=== PATIENT | male | born 1935 | race Caucasian/White ===

== ENCOUNTER 2017-12-25 10:41 | Outpatient (CLI) | payer MEDICARE ==
--- NOTE | 2017-12-25 12:09 | RAD ---
FRONTAL AND LATERAL IMAGING OF CHEST: Date: 12/25/17 COMPARISON: 12/26/16. HISTORY: Dyspnea. FINDINGS: Stable blunting of right costophrenic angle, elevation of right hemidiaphragm, and right hilar clips noted. No pneumothorax, lobar consolidation, or alveolar edema. IMPRESSION: Stable appearance of the chest. No acute findings. POS: MELODIE
== END 2017-12-25 10:42 | disposition home or self-care (01) ==
LOC: RAD 10:41
PROVIDERS: ATTEND Internal Medicine Pulmonary Disease
DX: R06.00 Dyspnea, unspecified (principal)
CPT/HCPCS: 71046

== ENCOUNTER 2019-06-11 15:43 | Inpatient (IN) | payer MEDICARE ==
[2019-06-11] MEDS ORDERED: Senokot S 8.6-50 MG TAB PO PRN (18:34)
[2019-06-11] MEDS ORDERED: Ondansetron PF 4 MG/2 ML Vial IVP PRN (18:34)
[2019-06-11] MEDS ORDERED: Ondansetron ODT 4 MG TAB PO PRN (18:34)
[2019-06-11] MEDS ORDERED: Acetaminophen 325 MG TAB PO PRN (18:34)
--- NOTE | 2019-06-11 19:49 | HP ---
PRIMARY CARE PROVIDER: The patient currently does not have a primary care provider. CHIEF COMPLAINT: Confusion, altered mental status, nausea and vomiting. HISTORY OF PRESENT ILLNESS: In interview of the patient at bedside, the patient did not recall the events that happened this morning that led him to the hospital today, so the information was gathered from the patient's spouse Brooke at bedside. The patient's spouse reports approximately 4 days before Argelia on June 01 , the family was having their annual [place] constitution party and she noticed that the patient was weak and had some nausea and vomiting. Over the next several days, the patient' s symptoms became worse, nausea, and vomiting, decreased oral intake and weakness. Then she reports this morning at approximately 0400 she went into the bedroom and the patient was curled up in the bed," like a little baby," so the patient called EMS. Upon EMS arrival, decision was made to take the patient into the ER in [place] at the [place]. CT of the brain was negative. It showed no acute intracranial process. Chest x-ray showed new left lung mass different from the previous chest x-ray on 12/25/17 in the left mid lung. EKG was normal sinus rhythm. The patient had a UA that showed moderate leukocytes, white blood cells , positive nitrites with bacteria +3. The patient was given Rocephin 1 g, 1 L of normal saline. The patient also had an elevated troponin of 0.071. The patient was also given aspirin 324 mg and a decision was made to transfer him to the [facility] for further care. PAST MEDICAL HISTORY: 1. Pertinent for bladder cancer with bladder reconstruction from small bowel in 2006. 2. Prostatectomy. 3. Lung cancer and the right upper lobe lobectomy by Dr. Mendieta back in 2006. The patient is followed by Dr. Brown. 4. Hypertension. 5. Bladder reconstruction with small bowel. The patient self cathes 4 times a day. 6. Hypertension. SOCIAL HISTORY: 1. The patient is retired and lives with his spouse at home. 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 He denies any alcohol intake. He is a former smoker quitting over 20 to 30 years ago. He denies any ETOH intake and denies any illicit drug use. ALLERGIES: THE PATIENT'S SPOUSE REPORTS ALLERGY TO LYRICA. MEDICATIONS: Unable to confirm dose at this time. We will reconcile medications on the floor. FAMILY HISTORY: The patient is a poor historian. Unable to obtain at this time due to altered mental status. REVIEW OF SYSTEMS: CONSTITUTIONAL: The patient reports weakness. Denies fever and chills. EYES: Denies any vision changes or eye redness or eye discharge or eye pain. ENT: The patient denies any epistaxis, otalgia, rhinorrhea or sore throat. CARDIOVASCULAR: The patient denies chest pain, heart palpitations. RESPIRATORY: The patient denies cough and shortness of breath. GI. The patient reports some nausea and vomiting. Denies any diarrhea or blood in the stools. GENITOURINARY: The patient reports self cathing 4 times a day secondary to bladder reconstruction. SKIN: Denies any rashes or pruritus. NEUROLOGICAL: The patient reports headaches. Denies any dizziness and confusion. PHYSICAL EXAMINATION: VITAL SIGNS: Temperature 98.7, blood pressure 134/63, pulse 84, respirations 18 , SpO2 96% on room air. CONSTITUTIONAL: The patient is alert and oriented to person, place, and time. HEAD: Atraumatic, normocephalic. EYES: Pupils are equal, round, and reactive to light. Extraocular muscles are intact conjunctiva nonicteric. ENT: EAC is clear. Nares are patent. Oropharynx is clear. No oral lesions. Uvula midline. NECK: Supple. Trachea is midline. No JVD. Normal range of motion. RESPIRATORY: Breath sounds are even, nonlabored. No wheezing, rhonchi, or rales. CARDIOVASCULAR: The patient has regular rate and rhythm. Heart sounds are normal. S1 and S2 auscultated. No murmurs, rubs, or gallops. ABDOMEN: Soft and nontender. Active bowel sounds. No hepatosplenomegaly. No distention. No pulsatile mass. No guarding or rebound tenderness. BACK: Exam is normal. EXTREMITIES: Upper extremities: Strength 5/5. Sensation intact. Palpable radial pulses. No clubbing. No cyanosis. Lower extremities: Muscle strength is 5/5. Palpable pedal pulses. No clubbing or cyanosis. Sensation intact. NEUROLOGICAL: GCS is 15. The patient is alert and oriented to person, place, and time. Speech is normal. No focal neuro deficits. SKIN: Warm, dry, and intact. LABORATORY DATA: EKG with normal sinus rhythm. Chest pressure was positive for a new left mid lung mass measuring 3.7 cm compared to previous chest x-ray on 12/25/2017. Recommendation for CT with contrast for further evaluation. CT brain was negative. No acute intracranial processes. Sodium was 133, potassium was 4.6, chloride was 100, bicarb was 17, BUN was 35, creatinine was 1.7, anion gap was 21, glucose was 109, GFR was 39, AST 18, ALT 15, alkaline phosphatase 72. Troponin 1 was 0.071, troponin 2 were negative. CK-MB was 2.4. BNP was 15.3. UA showed moderate leukocytes, WBCs greater than 50, nitrite positive, bacteria 3+. UDS was positive for opioids. ETOH was less than 10. Lactic acid was 1.2. WBCs were 12.5, hemoglobin 14.1, hematocrit 45.5, platelets 424. IMPRESSION: 1. Urinary tract infection. The patient was treated with 1 g of Rocephin. We will continue antibiotic therapy. We will send urine for culture. We will continue to IV hydrate. The patient's spouse reports that he self catheterize 4 four times a day. Therefore, we will start a Arevalo catheter and continue to monitor. 2. Altered mental status, likely secondary to #1. 3. Acute kidney injury, chronic kidney disease stage 3. Continue intravenous hydration. Repeat labs in the a.m. Avoid nephrotoxic medications. 4. Elevated troponin. Original troponin was elevated and the last 2 were negative. The patient was given aspirin. Denies chest pain. 5. Hyponatremia, mild, appears at baseline. Will continue to monitor. 6. Hypertension. Blood pressure stable. We will restart amlodipine home medication. 7. Lung mass. Finding on chest x-ray showed new left mid lung mass compared to 12/25/2017. We will consider CT of chest with contrast when the patient's kidney function improves. 8. Deep venous thrombosis and gastrointestinal prophylaxis. Job ID: [id number] [facility]
[2019-06-11] MEDS: Sodium Chloride 0.9% 1,000 ML IV SCH (20:22)
[2019-06-11 20:49] LABS: Troponin I 0.032 ng/mL (< 0.028)
[2019-06-11 23:33] LABS: Troponin I 0.024 ng/mL (< 0.028)
[2019-06-12 05:09] LABS: #Eosinphils 0.1 thou/uL (0.0-0.7); #Lymphocytes 1.8 thou/uL (1.20-3.40); #Neutrophils 5.6 thou/uL (1.40-6.50); %Basophils 0.3 % (0.0-1.0); %Eosinophils 1.7 % (0.0-10.0); %Lymphocytes 20.8 % (21.0-51.0); %Monocytes 11.8 % (0.0-10.0); %Neutrophils 65.5 % (42.0-75.0); Hemoglobin 12.7 g/dL (14.0-18.0); Mean Corpuscular HGB CONC 32.1 g/dL (32.0-36.0); Mean Corpuscular Hemoglobin 29.6 pg (27.0-31.0); Mean Corpuscular Volume 92.3 fL (78.0-98.0); Mean Platelet Volume 6.7 fL (7.4-10.4); Platelet Count 336 thou/uL (130-400); RBC Distribution Width 12.7 % (11.5-14.5); White Blood Cell (WBC) Count 8.6 thou/uL (4.8-10.8)
[2019-06-12 05:34] LABS: Anion Gap 15 mmol/L (10-20); BUN (Urea Nitrogen) 31 mg/dL (8.4-25.7); Calc. Creatinine Clearance 39 mL/min (70-130); Calcium 9.3 mg/dL (7.8-10.44); Carbon Dioxide 21 mmol/L (23-31); Chloride 104 mmol/L (98-107); Estimated GFR-MDRD 48; Glucose 72 mg/dL (83-110); Potassium 4.3 mmol/L (3.5-5.1); Sodium 136 mmol/L (136-145)
[2019-06-12] MEDS: Famotidine 20 MG TAB PO SCH (08:02)
[2019-06-12] MEDS: Sodium Chloride 0.9% 1,000 ML IV SCH ×2 (08:02→21:11)
--- NOTE | 2019-06-12 10:09 | PDOC.HOSPP ---
- Subjective Subjective: Doing ok this morning. No complaints. feels he is at his baseline. - Objective Vital Signs & Weight: Vital Signs (12 hours) Temp Pulse Resp BP BP Pulse Ox 06/12/19 07:23 97.9 F 74 18 137/76 96 06/12/19 04:20 98.4 F 75 16 139/65 96 06/11/19 23:13 98.5 F 84 16 147/69 H 96 Weight Weight 153 lb 6 oz I&O: 06/11/19 06/12/19 06/13/19 06:59 06:59 06:59 Intake Total 1065 Output Total 2200 Balance -1135 Result Diagrams: 06/12/19 04:51 06/12/19 04:51 Hospitalist ROS - Medication Medications: Active Medications Generic Name Dose Route Start Last Admin Trade Name Freq PRN Reason Stop Dose Admin Famotidine 20 mg 06/12/19 09:00 06/12/19 08:02 Pepcid PO 20 mg DAILY SAMARA Administration Sodium Chloride 1,000 mls @ 75 mls/hr 06/11/19 18:45 06/12/19 08:02 Normal Saline 0.9% IV 1,000 mls .[id number] SAMARA Administration - Exam General Appearance: NAD, awake alert Heart: RRR, no murmur, no gallops, no rubs, normal peripheral pulses Respiratory: CTAB, no wheezes, no rales, no ronchi, normal chest expansion, no tachypnea, normal percussion Gastrointestinal: soft, non-tender, non-distended, normal bowel sounds, no palpable masses, no hepatomegaly, no splenomegaly, no bruit Extremities: no cyanosis, no clubbing, no edema Musculoskeletal: normal tone, normal strength, no muscle wasting Psychiatric: normal affect, normal behavior Hosp A/P (1) Acute metabolic encephalopathy Code(s): G93.41 - METABOLIC ENCEPHALOPATHY Status: Acute (2) UTI (urinary tract infection) Status: Acute (3) Urinary retention Code(s): R33.9 - RETENTION OF URINE, UNSPECIFIED Status: Acute (4) Lung mass Code(s): R91.8 - OTHER NONSPECIFIC ABNORMAL FINDING OF LUNG FIELD Status: Acute (5) Hx of cancer of lung Code(s): Z85.118 - PERSONAL HISTORY OF MALIGNANT NEOPLASM OF BRONCHUS AND LUNG Status: Acute (6) Hyponatremia Code(s): E87.1 - HYPO-OSMOLALITY AND HYPONATREMIA Status: Acute (7) Hx of bladder cancer Code(s): Z85.51 - PERSONAL HISTORY OF MALIGNANT NEOPLASM OF BLADDER Status: Acute - Plan Had large volume of retained urine yesterday when the Arevalo was placed. Apparently, has reconstructed bladder with bowel. Typically self-caths, but had not all day because he was in the ED. Will leave the Arevalo in place for now. Continue Rocephin and await blood cultures. Renal function appears to be close to his baseline. Does not look like acute injury. Will continue to hydrate and recheck levels. Avoiding CT contrast for now. Has a 3.7 cm lung mass. Hx of lung cancer in 2006. Surgically treated. Follows with Dr. Brown. Will consult him. Plan for CT, but no tucker. Will continue to hydrate and see how well we can get the kidney's functioning so that we can consider the use of contrast.
[2019-06-12] MEDS: cefTRIAXone\\ROCEPHIN 1 GM in Sodium Chloride 0.9% 100 ML IVPB SCH (12:48)
[2019-06-13 05:39] LABS: #Eosinphils 0.1 thou/uL (0.0-0.7); #Neutrophils 5.1 thou/uL (1.40-6.50); %Basophils 0.1 % (0.0-1.0); %Eosinophils 1.4 % (0.0-10.0); %Lymphocytes 24.1 % (21.0-51.0); %Neutrophils 62.4 % (42.0-75.0); Hemoglobin 11.8 g/dL (14.0-18.0); Mean Corpuscular HGB CONC 32.7 g/dL (32.0-36.0); Mean Corpuscular Hemoglobin 29.4 pg (27.0-31.0); Mean Platelet Volume 6.6 fL (7.4-10.4); Platelet Count 302 thou/uL (130-400); RBC Distribution Width 12.4 % (11.5-14.5); Red Blood Cell (RBC) Count 4.02 mill/uL (4.70-6.10); White Blood Cell (WBC) Count 8.2 thou/uL (4.8-10.8)
[2019-06-13 06:03] LABS: Anion Gap 15 mmol/L (10-20); BUN (Urea Nitrogen) 20 mg/dL (8.4-25.7); Calc. Creatinine Clearance 49 mL/min (70-130); Calcium 8.7 mg/dL (7.8-10.44); Carbon Dioxide 18 mmol/L (23-31); Chloride 106 mmol/L (98-107); Estimated GFR-MDRD 61; Glucose 77 mg/dL (83-110); Potassium 3.8 mmol/L (3.5-5.1); Sodium 135 mmol/L (136-145)
[2019-06-13] MEDS: Famotidine 20 MG TAB PO SCH (07:32)
[2019-06-13] MEDS: Sodium Chloride 0.9% 1,000 ML IV SCH ×2 (07:32→23:44)
--- NOTE | 2019-06-13 09:19 | CT ---
CT Chest W Con HISTORY: Dyspnea, new left lung mass. COMPARISON: 06/11/2019 chest x-ray. FINDINGS: There is a left parahilar lung mass, this measures 4.6 cm in size it is causing narrowing t o a lingular bronchus. The margins are irregular. There are small left hilar lymph nodes present. There is an approximately 8 to 9 mm left lower lobe pulmonary nodule seen and more of a paravertebral location. There is a tiny 2 mm right upper lobe subpleural pulmonary nodule on axial image 11.. There is also a approximately 4 mm left upper lobe subpleural nodule seen on axial image 17. There are aorticopulmonary window lymph nodes which in aggregate measure 2.3 cm in size there is calc ifications associated with these nodes. There is also subcarinal lymphadenopathy also with some fairly dense calcification associated with some of these nodes this measures 1.6 cm in short axis dim ension. The thyroid gland is normal in appearance. Hypodense liver is within the liver most likely cysts. There is a somewhat ill-defined splenic lesion not definitely a cyst I cannot exclude this as a metastatic lesion measures 1.7 cm in size. Bilateral necrotic appearing adrenal lesions are noted with the right adrenal lesion measuring the 2. 9 cm range and left adrenal lesion 2.6 cm. Cortical scarring is seen involving the cortex of the right kidney. Review of osseous structures show no lytic or blastic bony change. The bones are demineralized. IMPRESSION: 1. Large left hilar mass density causing narrowing to the lingular bronchus. This is highly suspiciou s for neoplasm given its central location bronchoscopy would be recommended for assessment. 2. There is mild mediastinal lymphadenopathy however multiple these nodes have calcification associat ed with them, this could still represent metastatic disease but could be the sequelae of old granulomatous disease. 3. Bilateral adrenal masses consistent with metastatic disease. 4. Tiny right and left upper lobe nodular densities which are somewhat nonspecific however there is a larger approximately 9 mm left lower lobe pulmonary nodule which would be suspicious for a metastatic lesion. 5. Indeterminate hypodensity involving the spleen I cannot exclude this as a metastatic deposit. 6. Small gallstone incidentally noted.
[2019-06-13] MEDS ORDERED: Iopamidol-370 76% 500 ML 1 ML ONE (10:38)
[2019-06-13] MEDS: cefTRIAXone\\ROCEPHIN 1 GM in Sodium Chloride 0.9% 100 ML IVPB SCH (11:07)
--- NOTE | 2019-06-13 11:18 | PDOC.HOSPP ---
- Subjective Subjective: Doing ok this morning. Slept very well with the Seroquel. No complaints today. - Objective Vital Signs & Weight: Vital Signs (12 hours) Temp Pulse Resp BP BP Pulse Ox 06/13/19 07:14 98.4 F 77 18 161/68 H 97 06/13/19 04:03 98.0 F 74 16 142/69 H 95 Weight Admit Weight 153 lb 6 oz Weight 153 lb 6 oz I&O: 06/12/19 06/13/19 06/14/19 06:59 06:59 06:59 Intake Total 1065 2740 Output Total 2200 2300 450 Balance -1135 440 -450 Result Diagrams: 06/13/19 05:22 06/13/19 05:22 Hospitalist ROS - Medication Medications: Active Medications Generic Name Dose Route Start Last Admin Trade Name Freq PRN Reason Stop Dose Admin Famotidine 20 mg 06/12/19 09:00 06/13/19 07:32 Pepcid PO 20 mg DAILY SAMARA Administration Sodium Chloride 1,000 mls @ 75 mls/hr 06/11/19 18:45 06/13/19 07:32 Normal Saline 0.9% IV 1,000 mls .[id number] SAMARA Administration Ceftriaxone Sodium 1 gm/ 100 mls @ 200 mls/hr 06/12/19 12:00 06/13/19 11:07 Sodium Chloride IVPB 100 mls 1200 SAMARA Administration Quetiapine Fumarate 25 mg 06/12/19 21:00 06/12/19 21:10 Seroquel PO 25 mg HS SAMARA Administration - Exam General Appearance: NAD, awake alert Heart: RRR, no murmur, no gallops, no rubs, normal peripheral pulses Respiratory: CTAB, no wheezes, no rales, no ronchi, normal chest expansion, no tachypnea, normal percussion Gastrointestinal: soft, non-tender, non-distended, normal bowel sounds, no palpable masses, no hepatomegaly, no splenomegaly, no bruit Extremities: no cyanosis Musculoskeletal: normal tone Psychiatric: normal affect, normal behavior, A&O x 3 Hosp A/P (1) Acute metabolic encephalopathy Code(s): G93.41 - METABOLIC ENCEPHALOPATHY Status: Acute (2) UTI (urinary tract infection) Status: Acute (3) Urinary retention Code(s): R33.9 - RETENTION OF URINE, UNSPECIFIED Status: Acute (4) Lung mass Code(s): R91.8 - OTHER NONSPECIFIC ABNORMAL FINDING OF LUNG FIELD Status: Acute (5) Hx of cancer of lung Code(s): Z85.118 - PERSONAL HISTORY OF MALIGNANT NEOPLASM OF BRONCHUS AND LUNG Status: Acute (6) Hyponatremia Code(s): E87.1 - HYPO-OSMOLALITY AND HYPONATREMIA Status: Acute (7) Hx of bladder cancer Code(s): Z85.51 - PERSONAL HISTORY OF MALIGNANT NEOPLASM OF BLADDER Status: Acute (8) Metastasis to adrenal gland Code(s): C79.70 - SECONDARY MALIGNANT NEOPLASM OF UNSPECIFIED ADRENAL GLAND Status: Acute - Plan Had large volume of retained urine yesterday when the Arevalo was placed. Apparently, has reconstructed bladder with bowel. Typically self-caths, but had not all day because he was in the ED. Will leave the Arevalo in place for now. Urine culture appears to be mixed without a specific pathogen. Will DC Rocephin. Renal function improved with hydration. He did get contrast today for CT. Will continue to hydrate and recheck in am. CT with lung mass, satellite masses, calcified LN's and bilateral necrotic adrenal masses. Highly suspicious for lung cancer that is likely stage IV. Hx of lung cancer in 2006. Surgically treated. In light of the negative UCx and the confusion, the CT findings, will obtain MRI of the head to assess for possible mets. Had some exacerbation of the encephalopathy yesterday. Did well with Seroquel. Continue that.
--- NOTE | 2019-06-13 14:56 | MRI ---
MRI BRAIN WITHOUT CONTRAST: HISTORY: Metastatic cancer, confusion, altered mental status, posterior dimension COMPARISON: None CORRELATION: CT scan from 06/11/2019. FINDINGS: No restricted diffusion is seen. There are multiple foci of T2 prolongation in the periventricular wh ite matter, consistent with chronic small vessel ischemic disease. There are changes of cortical atrophy. The ventricular size is appropriate and the basilar cisterns are patent. No evidence of acute infarct, hemorrhage, midline shift or abnormal extra-axial fluid collections is seen. The visualized paranasal sinuses and mastoid air cells are well-aerated. Metastatic disease cannot be excluded in the absence of IV contrast. IMPRESSION: No evidence of acute intracranial process.
--- NOTE | 2019-06-13 15:11 | CON ---
DATE OF CONSULTATION: 06/13/2019 CONSULTING PHYSICIAN: Dr. Monroy. REASON FOR CONSULTATION: Lung mass. This encompassed 50 minutes of time, of that time, greater than 50% spent with the patient and/or performing direct patient care in the hospital. HISTORY OF PRESENT ILLNESS: The patient is a pleasant 84-year-old who comes in with a 1-month history of nausea and vomiting that has not improved since admission. In incidental finding of a lung mass on chest x-ray, this was followed by CT scan, which showed a fairly significant left hilar lung mass and bilateral adrenal gland metastasis. The patient had a right upper lobe lung cancer back in 2006, which was treated with a lobectomy by Dr. Mendieta. He was followed by Dr. Brown in the past. He denies any hemoptysis or shortness of breath at baseline. Denies any significant weight loss, although it looks like he has lost quite a bit. PAST MEDICAL HISTORY: 1. Lung cancer. 2. Bladder reconstruction with small bowel. 3. Hypertension. 4. Prostatectomy. SOCIAL HISTORY: Quit smoking 30 years ago. Does not consume alcohol. Lives at home with his . ALLERGIES: LYRICA. FAMILY MEDICAL HISTORY: Unremarkable for lung cancer. MEDICATIONS: Prior to admission: 1. Lamictal. 2. Multivitamin. 3. Amlodipine. REVIEW OF SYSTEMS: Twelve-point review of systems otherwise negative except for nausea and vomiting. He denies dizziness, hemoptysis, fever, chills, hematemesis, melena, hematochezia, hematuria, or dysuria. PHYSICAL EXAMINATION: VITAL SIGNS: Temperature 98.4, pulse 77, respirations 16, O2 saturation 99% on room air, and blood pressure 149/71. He is 5 feet 8 inches, weight 153 pounds, and BMI is 23. GENERAL: He is awake and alert, in no distress. HEENT: Pupils reactive. Sclerae anicteric. Oropharynx clear. NECK: No adenopathy or JVD. LUNGS: Clear to auscultation without wheezing or rhonchi. CARDIOVASCULAR: S1 and S2 regular without murmur. ABDOMEN: Soft and nontender. No hepatosplenomegaly. EXTREMITIES: No clubbing, cyanosis, or edema. Although, it looks like he has significant muscle wasting. LABORATORY DATA: White blood cell count 8.2, hematocrit 36.2, platelet count 302. Sodium 135, potassium 3.8, chloride 106, CO2 of 18, BUN 20, creatinine 1.1, and glucose 77. I reviewed his CT scan personally. ASSESSMENT: Left hilar lung mass, likely reflective of bronchogenic lung cancer. He has bilateral adrenal metastasis. He is having significant nausea and vomiting for the last month. RECOMMENDATIONS: 1. MRI of the head to rule out metastasis to the brain. 2. If biopsy is needed, then I would agree that the adrenal gland may be the best as we can stage the patient. Thank you for the referral. We will follow. Job ID: [id number]
[2019-06-13] MEDS ORDERED: ALPRAZolam 0.25 MG TAB PO SCH (17:15)
[2019-06-14 05:23] LABS: Anion Gap 12 mmol/L (10-20); BUN (Urea Nitrogen) 13 mg/dL (8.4-25.7); Calc. Creatinine Clearance 49 mL/min (70-130); Calcium 8.7 mg/dL (7.8-10.44); Carbon Dioxide 24 mmol/L (23-31); Chloride 106 mmol/L (98-107); Estimated GFR-MDRD 61; Glucose 81 mg/dL (83-110); Potassium 4.1 mmol/L (3.5-5.1); Sodium 138 mmol/L (136-145)
[2019-06-14 08:38] LABS: INR-International Normal Ratio 1.2; Prothrombin Time 15.3 SEC (12.0-14.7)
[2019-06-14 08:39] LABS: PTT 38.1 SEC (22.9-36.1)
[2019-06-14] MEDS: Famotidine 20 MG TAB PO SCH (08:43)
[2019-06-14] MEDS ORDERED: Midazolam HCl 2 mg/2 ml Vial ONE (09:00)
[2019-06-14] MEDS ORDERED: Sodium Bicarbonate 2.5 MEQ/5 ML VIAL ONE (09:00)
[2019-06-14] MEDS ORDERED: Fentanyl 100 MCG/2 ML VIAL ONE (09:00)
[2019-06-14 09:14] VITALS: BMI 23.6
--- NOTE | 2019-06-14 10:50 | PRG ---
DATE OF SERVICE: 06/14/2019 SUBJECTIVE: The patient had an adrenal gland biopsy earlier today. He is doing well. OBJECTIVE: VITAL SIGNS: Temperature 98.2, pulse 75, respirations 16, O2 saturation 97%, and blood pressure 136/63. HEENT: Unremarkable. NECK: No JVD. LUNGS: Clear. CARDIAC: S1, S2. Regular. ABDOMEN: Soft. EXTREMITIES: No edema. ASSESSMENT: Left hilar mass with adrenal metastasis. PLAN: Await results of adrenal biopsy. He can follow up as an outpatient for those results. Dr. Brown is his pulmonary doctor. Job ID: [id number]
--- NOTE | 2019-06-14 11:22 | CT ---
CT-guided left adrenal mass biopsy HISTORY: Lung cancer. Adrenal mass. FINDINGS: After explaining the procedure and answering all questions, limited CT imaging of the abdom en was performed with patient in left lateral decubitus position. Sterile technique, buffered local anesthesia, CT guidance, and a left posterior approach were used to carefully advance the tip of a 17 -gauge trocar needle to the posterior margin of the left adrenal mass. Position was confirmed with CT. A total of 5 18-gauge core biopsy specimens were obtained and submitted to Dr. Kwok from pathology o confirmed specimen adequacy. Needle was removed. No evidence of complication. Patient tolerated the procedure well and was returne d in unchanged condition. IMPRESSION: Technically successful CT-guided biopsy left adrenal mass. Pathology is pending.
[2019-06-14 12:22] VITALS: BP 170/78; TEMP 98.1
--- NOTE | 2019-06-14 12:43 | PQF ---
CORAL DE PAZ, BENI CHERRY, BASSAM Cowan MD [id number] CLINICAL DOCUMENTATION IMPROVEMENT CLARIFICATION FORM: ICD-10 Updated PLEASE DO AN ADDENDUM TO THE PROGRESS NOTE WITH ANY DOCUMENTATION UPDATES OR ADDITIONS AND CARRY THROUGH TO DC SUMMARY. THANK YOU. DATE: 06/14/19 ATTN: Dr. Cherry Please exercise your independent, professional judgment in responding to the clarification form. Clinical indicators are provided on the bottom of this form for your review Please check appropriate box(s): [ ] UTI please specify if due to or related to (as applicable): [ ] Self-catheterization [ ] Unable to determine etiology UTI Site: [ ] Kidney [ ] Ureter [ ] Bladder [ ] Urethra [ ] Unable to determine Specify Organism (if known): [ ] Unknown organism [ ] Contaminated urine specimen without UTI [ x ] Other diagnosis Bacteriuria [ ] Unable to determine In addition, please specify: Present on Admission (POA): [ ] Yes [ ] No [ ] Unable to determine For continuity of documentation, please document condition throughout progress notes and discharge summary. Thank You. CLINICAL INDICATORS - SIGNS / SYMPTOMS / LABS / RESULTS AND LOCATION IN MR 06/11 ED([place]): "UTI transfer" 06/12 [place]: had large volume of retained urine yesterday when the Arevalo was placed 06/11 H&P([place]): "UA that showed moderate leukocytes, wbc, positive nitrates with bacteria 3+" RISK FACTORS / RESULTS AND LOCATION IN MR History self-cath/indwelling catheter --> 06/12 [place]: "Apparently, has reconstructed bladder with bowel. Typically self-caths, but has not all day because he was in the ED." TREATMENT / RESULTS AND LOCATION IN MR Antibiotics--> Rocephin 1gm IV 06/12-12 per orders IVF--> NS at 75 06/11-12 per orders Arevalo placed 06/11 per orders (This form is maintained as a part of the permanent medical record) 2014 [employer]. All Rights Reserved Merlyn Moraes RN, BSN, CCDS [email or web address] [phone] [facility]
--- NOTE | 2019-06-14 22:10 | DIS ---
DATE OF ADMISSION: 06/11/2019 DATE OF DISCHARGE: 06/14/2019 DISCHARGE DIAGNOSES: 1. Acute metabolic encephalopathy. 2. Lung mass consistent with neoplasm. 3. 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 4. Mild hyponatremia. 5. Bacteriuria. 6. History of bladder cancer with neobladder creation. HISTORY OF PRESENT ILLNESS: This patient is an 84-year-old male who initially presented to the hospital through the emergency department. The patient has a history of bladder cancer, has a neobladder, and generally is self-cathing at home. The patient was unable to self-cath during his time in the emergency department, which became extended and ultimately did have a catheter placed revealing 1300 mL of urine. There was some concern for possibility of infection. However, the patient remained afebrile. A chest x-ray was concerning for a left upper lobe mass. The patient had a history of a prior lung cancer removed with surgical excision approximately 12 years prior. He did admit to having some significant weight loss over the preceding months with poor appetite. HOSPITAL COURSE: The patient was admitted to the hospital initially with what appeared to be urinary tract infection with acute encephalopathy. Cultures ultimately however only grew mixed javan with no specific pathogen and ultimately was felt that he did not in fact have urinary tract infection and the antibiotics were discontinued. The patient did initially have GFR that was at 39, his previous check in December was at 51. However, with hydration that came up to 61. With that, he was able to have a CT scan of the chest. CT scan revealed a large left hilar mass density causing narrowing of the lingular bronchus, highly suspicious for neoplasm. Given the central location, bronchoscopy was recommended. There was a mild mediastinal lymphadenopathy. However, multiple of the nodes were calcified, but could represent metastatic disease. He had bilateral adrenal masses consistent with metastatic disease. There was a tiny right and left upper lobe nodular density, somewhat nonspecific, a larger 9 mm left lower lobe pulmonary nodule suspicious for metastatic lesion and indeterminate hypodensity involving the spleen, which could not be excluded as a metastatic lesion as well with that and the patient had MRI of the brain given his encephalopathy and the lack of urinary findings. This showed no evidence of any metastatic disease. The patient was typically followed by Dr. Brown and Dr. Wood was subsequently consulted. The recommendation to consider biopsy of one of the metastatic lesions in order to not only make the diagnosis, but help stage the potential cancer as well. I discussed the case with Radiology, who felt this was appropriate and doable. Therefore, this was ordered and accomplished on the day of discharge. The patient remained hydrated after his initial CT scan and his GFR remained at 61. During the hospitalization, the patient felt fairly well. He did have some slight confusion usually late in the evening, which responded well to initiation of low-dose Seroquel. DISCHARGE EXAMINATION: VITAL SIGNS: On the day of discharge, temperature is 98.1, pulse 74, respirations 16, O2 saturation 96% on room air, blood pressure was 170/78 to 127/62. GENERAL: He was awake, alert, pleasant, cooperative. HEART: Regular rate and rhythm. LUNGS: Clear. ABDOMEN: Benign. EXTREMITIES: Had no cyanosis, clubbing, or edema. DISPOSITION: The patient is discharged to home. DISCHARGE MEDICATIONS: 1. He will have Seroquel 25 mg p.o. q.h.s. 2. Amlodipine 5 mg daily. 3. Multivitamin one p.o. daily. 4. Lamotrigine 100 mg b.i.d. FOLLOWUP: He is to follow up with Dr. Daniel Deng and with Dr. Brown. He is encouraged to call Dr. Brown's office and this information will be relayed to Dr. Brown through Dr. Wood. The hope being that he will be able to get the results of the pathology and then potentially be directed to Oncology. The patient's has seen Dr. Werner in the past and believes they would like to follow up there for her as well. However, it is a bit difficult given his general weakness. Get the patient back and forth to the hospital to doctor's appointments. Therefore, hoping to keep that to minimum until they can get to the Oncology Clinic. The patient can return to the hospital at any time he feels the need to do so. ACTIVITY: As tolerated. DIET: Regular. Total time in discharge activities was 45 minutes. Job ID: [id number]
== END 2019-06-14 12:28 | disposition home or self-care (01) | DRG 180 ==
LOC: ERS 15:43 → 2SW 18:44 → OBSVTOIN 18:44
PROVIDERS: ADMIT Internal Medicine; ATTEND Internal Medicine
PROC: 0GB23ZX Excision of Left Adrenal Gland, Percutaneous Approach, Diagnostic (ICD-10-PCS; principal; 2019-06-14)
DX: C34.02 Malignant neoplasm of left main bronchus (principal); G93.41 Metabolic encephalopathy; C79.72 Secondary malignant neoplasm of left adrenal gland; C79.71 Secondary malignant neoplasm of right adrenal gland; E87.1 Hypo-osmolality and hyponatremia; R82.71 Bacteriuria; N18.3 Chronic kidney disease, stage 3 (moderate); I12.9 Hypertensive chronic kidney disease with stage 1 through stage 4 chronic kidney disease, or unspecified chronic kidney disease; Z85.51 Personal history of malignant neoplasm of bladder; Z88.8 Allergy status to other drugs, medicaments and biological substances; Z87.891 Personal history of nicotine dependence
CPT/HCPCS: 36415; 50200; 70551; 71260; 77002; 80048; 84443; 85025; 85610; 85730; 93005; J0696; J2250; J3010; J3490; Q9967

== ENCOUNTER 2019-06-24 09:29 | Observation (INO) | payer MEDICARE ==
[2019-06-24 10:01] LABS: #Eosinphils 0.1 thou/uL (0.0-0.7); #Lymphocytes 1.7 thou/uL (1.20-3.40); #Neutrophils 7.5 thou/uL (1.40-6.50); %Basophils 0.4 % (0.0-1.0); %Eosinophils 0.6 % (0.0-10.0); %Lymphocytes 16.8 % (21.0-51.0); %Monocytes 9.6 % (0.0-10.0); %Neutrophils 72.7 % (42.0-75.0); Hemoglobin 14.6 g/dL (14.0-18.0); Mean Corpuscular HGB CONC 32.5 g/dL (32.0-36.0); Mean Corpuscular Hemoglobin 29.8 pg (27.0-31.0); Mean Corpuscular Volume 91.6 fL (78.0-98.0); Mean Platelet Volume 6.9 fL (7.4-10.4); Platelet Count 381 thou/uL (130-400); Red Blood Cell (RBC) Count 4.92 mill/uL (4.70-6.10); White Blood Cell (WBC) Count 10.3 thou/uL (4.8-10.8)
[2019-06-24 10:16] LABS: ALT (SGPT) 13 U/L (8-55); AST (SGOT) 23 U/L (5-34); Albumin 4.2 g/dL (3.4-4.8); Alkaline Phosphatase 73 U/L (40-110); Anion Gap 19 mmol/L (10-20); BUN (Urea Nitrogen) 38 mg/dL (8.4-25.7); Bilirubin, Total 0.5 mg/dL (0.2-1.2); Calc. Creatinine Clearance 0 mL/min (70-130); Calcium 10.4 mg/dL (7.8-10.44); Carbon Dioxide 20 mmol/L (23-31); Chloride 99 mmol/L (98-107); Estimated GFR-MDRD 43; Globulin 3.4 g/dL (2.4-3.5); Glucose 88 mg/dL (83-110); Potassium 4.7 mmol/L (3.5-5.1); Protein, Total 7.6 g/dL (5.8-8.1); Sodium 133 mmol/L (136-145)
--- NOTE | 2019-06-24 11:54 | CT ---
CT OF THE ABDOMEN AND PELVIS WITH IV CONTRAST INDICATION: Weakness and decreased appetite COMPARISON: CT the chest dated June 13, 2019 FINDINGS: ABDOMEN: Lung bases: r there is a stable 7 mm pulmonary nodule in the left lower lobe. Liver: Scattered hepatic cysts are largely stable. There are scattered calcified granuloma. Gallbladder: Stable cholelithiasis Pancreas: Normal. Adrenal glands: Enlarging bilateral adrenal masses. The lesion in the left adrenal gland now measures 3 cm were previously measured 2.6 cm. The lesion in the right adrenal gland and measures 3.4 cm were previously measured 3 cm. Spleen: There is a persistent 1.5 cm hypodensity within the spleen Kidneys and ureters: Interval development of severe bilateral hydronephrosis and hydroureter. There i s prominent dilatation of the bladder. Vasculature: There are severe vascular calcifications seen involving the visualized vasculature. Lymph nodes:No lymphadenopathy. Free fluid in abdomen:No free fluid is evident. PELVIS: Small and large bowel: There is postsurgical change of a right hemicolectomy and ileocolonic anastomo sis in the right lower quadrant of the abdomen. Appendix:Surgically absent Bladder: Prominently distended Rectal and perirectal soft tissues:Normal. Reproductive structures: Findings of prostatectomy Free fluid in pelvis: No free fluid is evident. Lymphadenopathy pelvis: No lymphadenopathy is evident. Osseous structures: The patient has a 2 cm lytic lesion involving the anterior right iliac wing. Ther e is a lytic lesion involving the posterior superior right acetabulum measuring 2.5 cm. Patchy lucency within the L5 vertebral body is suspicious for an osteolytic or static lesion. There is a ost eolytic lesion seen within the right superior aspect of T10 suspicious for metastatic disease. There is scattered degenerative and osteoarthritic changes. Soft tissues:Normal. IMPRESSION: 1. Interval development of severe bilateral hydronephrosis and prominent distention of the bladder. F indings are suspicious for bladder outlet obstruction. Recommend Arevalo catheter placement and repeat renal ultrasound to document decompression of the renal collecting system. 2. Worsening metastatic disease of the adrenal glands. 3. Scattered osteolytic osseous metastatic disease. 4. Stable left splenic hypodensities suspicious for metastatic lesion. 5. Multiple hepatic cysts. 6. Stable left lower lobe pulmonary nodule.
[2019-06-24 15:57] VITALS: BMI 18.3
[2019-06-24] MEDS ORDERED: Acetaminophen 325 MG TAB PO PRN (16:28)
[2019-06-24] MEDS ORDERED: Ondansetron PF 4 MG/2 ML Vial IVP PRN ×2 (16:28→17:12)
[2019-06-24] MEDS ORDERED: Ondansetron ODT 4 MG TAB SL PRN (16:28)
[2019-06-24] MEDS ORDERED: Sodium Chloride 0.9% 1,000 ML IV SCH (16:28)
[2019-06-24] MEDS ORDERED: Ondansetron ODT 4 MG TAB PO PRN (17:12)
[2019-06-24] MEDS ORDERED: Acetaminophen 500 MG TAB PO PRN (17:12)
[2019-06-24] MEDS: Sodium Chloride 0.9% 1,000 ML IV SCH (17:22)
[2019-06-24] MEDS: lamoTRIgine 100 MG TAB PO SCH (19:25)
[2019-06-24] MEDS: Megestrol Acetate 40 MG TAB PO SCH (19:25)
--- NOTE | 2019-06-24 22:04 | HP ---
PRIMARY CARE PROVIDER: Daniel Deng MD PRIMARY ONCOLOGIST: Marc Werner MD CHIEF COMPLAINT: Generalized weakness, weight loss. HISTORY OF PRESENT ILLNESS: This is an 84-year-old male, who presented to [facility] Emergency Department in the context of known metastatic process of unclear pathology. The patient was recently admitted to [facility] from 06/11/2019 to 06/14/2019 with metabolic encephalopathy as well as findings consistent with lung neoplasm with likely metastatic process to the adrenal glands. The patient underwent CT-guided biopsy of the adrenal gland without confirmation of malignant process. The patient presented with family members and his spouse, who states he has had decreasing energy level, profound weakness, and loss of appetite. The patient has lost up to 50 pounds according to the in the last several months. The patient's history also is significant for bladder outlet obstruction requiring catheter placement with his most recent admission; however, was discharged home on intermittent self-catheterizations, which the patient states he performs approximately twice daily. The patient admits he only ambulates short distances of several feet and becomes extremely short of breath with profound fatigue. The patient denied any hemoptysis, melena, or hematuria. The patient was evaluated by his primary supervisor sanding, Dr. Brown within the last week with recommendations for outpatient followup with Medical Oncology Service. In the emergency room, the patient underwent general evaluation including CT imaging of the abdomen and pelvis showing severe bilateral hydronephrosis secondary to bladder outlet obstruction. The patient was also noted with enlarging bilateral adrenal masses consistent with metastatic process. Also noted were several osteolytic processes concerning for metastatic disease. The patient received IV fluids in the emergency room as well as placement of Arevalo catheter with decompression of the bladder. PAST MEDICAL HISTORY: 1. 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 2. Status post prostatectomy. 3. History of lung cancer of the right upper lobe with subsequent lobectomy. 4. Hypertension. 5. 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 6. Hypertension. 7. Anorexia. 8. Deconditioning. PAST SURGICAL HISTORY: 1. Status post bladder reconstruction from small-bowel source 2006. 2. Status post prostatectomy. 3. Status post right upper lobectomy secondary to lung cancer. CURRENT MEDICATIONS: 1. Amlodipine 5 mg p.o. daily. 2. Lamotrigine 100 mg p.o. b.i.d. 3. Multivitamin 1 tablet p.o. daily. 4. Seroquel 25 mg p.o. at bedtime. ALLERGIES: TO PREGABALIN. FAMILY HISTORY: No inheritable diseases per patient report. SOCIAL HISTORY: The patient resides in the [place], [place] area with his spouse. 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 No current alcohol, tobacco, or illicit drug use. Remote tobacco use, quitting over 20 to 30 years prior to this evaluation. Ambulates with a rolling walker or using furniture for assistance. REVIEW OF SYSTEMS: CONSTITUTIONAL: Negative for weight loss or gain, ability to conduct usual activities. SKIN: Negative for rash, itching. EYES: Negative for double vision, pain. ENT/MOUTH: Negative for nose bleeding, neck stiffness, pain, tenderness. CARDIOVASCULAR: Negative for palpitations, dyspnea on exertion, orthopnea. RESPIRATORY: Negative for shortness of breath, wheezing, cough, hemoptysis, fever or night sweats. GASTROINTESTINAL: Negative for poor appetite, abdominal pain, heartburn, nausea, vomiting, constipation, or diarrhea. GENITOURINARY: Negative for urgency, frequency, dysuria, nocturia. MUSCULOSKELETAL: Negative for pain, swelling. NEUROLOGIC/PSYCHIATRIC: Negative for anxiety, depression. ALLERGY/IMMUNOLOGIC: Negative for skin rash, bleeding tendency. Otherwise negative except as stated per HPI. PHYSICAL EXAMINATION: VITAL SIGNS: On admission, blood pressure 152/80, pulse 89, respiratory rate 18, temperature 98.1 degrees Fahrenheit, O2 saturation 99% on room air. GENERAL APPEARANCE: This is an 84-year-old male, pale appearing, responsive, ill-appearing, in no acute distress. HEENT: Pupils are equal, round, reactive to light and accommodation. Extraocular muscles are intact. No scleral icterus. No conjunctival injection. Nares are patent. OP is clear. Oral mucosa dry. NECK: Supple. No cervical adenopathy. No thyromegaly. No carotid bruits. No JVD appreciated. Cervical spine with full active and passive range of motion. No meningeal signs noted. CHEST: Diminished breath sounds in the bases bilaterally. CARDIOVASCULAR: S1, S2 without noted murmur, rub, or gallop. ABDOMEN: Scaphoid without palpable mass. Bowel sounds are positive in all 4 quadrants. There is no hepatosplenomegaly. No rebound or guarding appreciated. EXTREMITIES: Warm and dry with fair turgor. Generalized muscle atrophy noted. Pulses are palpable distally at the dorsalis pedis, posterior tibial, and popliteal arteries bilaterally. Capillary refill less than 2 seconds. NEUROLOGIC: Cranial nerves 2 through 12 are grossly intact. No focal or lateralizing signs appreciated. The patient not observed ambulatory during this exam. PERTINENT LABORATORY AND X-RAY FINDINGS: Sodium 133, potassium 4.7, chloride 99, CO2 of 20, BUN 38, creatinine 1.55, estimated GFR 43, glucose 88, calcium 10.4. LFTs within normal limits. CBC showed a white blood cell count of 10.3, hemoglobin 14.6, hematocrit 45.1, platelet count 381 with 73% neutrophils. CT of the abdomen and pelvis dated 06/24/2019 showed severe bilateral hydronephrosis. Metastatic process noted in the adrenal glands worse from previous exam. Scattered osteolytic osseous metastatic process. Multiple hepatic cysts noted. ASSESSMENT AND PLAN: 1. Bladder outlet obstruction with bilateral hydronephrosis. Arevalo catheter inserted in the emergency room. We will continue bladder decompression with catheter insertion. We will consider Urology consult for recommendations for long-term management. 2. Acute kidney injury on chronic kidney disease, stage 3. Suspect secondary to #1. Avoid nephrotoxic agents. Limit contrast exposure. Repeat creatinine in the a.m. 3. Metastatic process. Pathology unsuccessful in identifying a current metastatic process. We will consult Medical Oncology Service for any further recommendations and likely outpatient management. We will consult Palliative Care Service to establish goals of care and long-term management. 4. Hypertension. Resume amlodipine 5 mg p.o. daily. 5. Prophylaxis. SCDs while in bed. Pepcid 20 mg p.o. b.i.d. PT evaluation for general functional assessment. CODE STATUS: Full. Surrogate medical decision maker is the patient's spouse. Job ID: [id number]
[2019-06-25] MEDS: Sodium Chloride 0.9% 1,000 ML IV SCH (04:40)
[2019-06-25 05:21] LABS: Lymphocytes 29 % (21-51); MDiff Complete? YES; Mean Corpuscular HGB CONC 32.8 g/dL (32.0-36.0); Mean Corpuscular Hemoglobin 29.9 pg (27.0-31.0); Mean Corpuscular Volume 91.1 fL (78.0-98.0); Monocytes 11 % (0-10); Neutrophil 60 % (42-75); Platelet Count 336 thou/uL (130-400); Platelet Morphology Comment Appears Adequate; Red Blood Cell (RBC) Count 4.36 mill/uL (4.70-6.10); White Blood Cell (WBC) Count 9.6 thou/uL (4.8-10.8)
[2019-06-25 05:29] LABS: Anion Gap 14 mmol/L (10-20); BUN (Urea Nitrogen) 34 mg/dL (8.4-25.7); Calc. Creatinine Clearance 38 mL/min (70-130); Carbon Dioxide 23 mmol/L (23-31); Chloride 104 mmol/L (98-107); Estimated GFR-MDRD 51; Potassium 4.5 mmol/L (3.5-5.1); Sodium 136 mmol/L (136-145)
[2019-06-25 05:30] LABS: Calcium 9.8 mg/dL (7.8-10.44); Glucose 80 mg/dL (83-110)
[2019-06-25] MEDS: Amlodipine 5 MG TAB PO SCH (09:18)
[2019-06-25] MEDS: Famotidine 20 MG TAB PO SCH (09:19)
[2019-06-25] MEDS: Multivitamin W/ Minerals 1 TAB PO SCH (09:20)
[2019-06-25] MEDS: Megestrol Acetate 40 MG TAB PO SCH ×3 (09:20→20:06)
[2019-06-25] MEDS: lamoTRIgine 100 MG TAB PO SCH ×2 (09:20→20:00)
--- NOTE | 2019-06-25 15:34 | PDOC.HOSPP ---
- Subjective Subjective: Patient feels well. Denies complaints. He says he has been cathing his bladder as usual. His and son indicate he may not be due to mental and physical inability. - Objective Vital Signs & Weight: Vital Signs (12 hours) Temp Pulse Pulse Pulse Resp BP BP 06/25/19 11:45 98.6 F 73 18 06/25/19 09:22 80 75 128/71 06/25/19 09:18 71 131/66 06/25/19 07:10 97.7 F 71 18 06/25/19 04:30 97.8 F 72 16 133/67 BP BP Pulse Ox 06/25/19 11:45 117/60 97 06/25/19 09:22 150/70 H 06/25/19 09:18 06/25/19 07:10 131/66 97 06/25/19 04:30 96 Weight Admit Weight 139 lb Weight 139 lb I&O: 06/24/19 06/25/19 06/26/19 06:59 06:59 06:59 Intake Total 1190 Output Total 400 Balance 790 Result Diagrams: 06/25/19 04:41 06/25/19 04:41 Hospitalist ROS - Medication Medications: Active Medications Generic Name Dose Route Start Last Admin Trade Name Freq PRN Reason Stop Dose Admin Amlodipine Besylate 5 mg 06/25/19 09:00 06/25/19 09:18 Norvasc PO 5 mg DAILY SAMARA Administration Famotidine 20 mg 06/25/19 09:00 06/25/19 09:19 Pepcid PO 20 mg DAILY SAMARA Administration Sodium Chloride 1,000 mls @ 75 mls/hr 06/24/19 17:15 06/25/19 04:40 Normal Saline 0.9% IV 1,000 mls .[id number] SAMARA Administration Iron/Minerals/Multivitamins 1 tab 06/25/19 09:00 06/25/19 09:20 Theragran M PO 1 tab DAILY SAMARA Administration Lamotrigine 100 mg 06/24/19 21:00 06/25/19 09:20 Lamictal PO 100 mg BID SAMARA Administration Megestrol Acetate 40 mg 06/24/19 21:00 06/25/19 15:26 Megace PO 40 mg TID SAMARA Administration Ondansetron HCl 4 mg 06/24/19 17:12 06/24/19 18:09 Zofran IVP 4 mg Q6H PRN Administration Nausea/Vomiting Quetiapine Fumarate 25 mg 06/24/19 21:00 06/24/19 19:25 Seroquel PO 25 mg HS SAMARA Administration - Exam General Appearance: NAD, awake alert Heart: RRR, no murmur, no gallops, no rubs, normal peripheral pulses Respiratory: CTAB, no wheezes, no rales, no ronchi, normal chest expansion, no tachypnea, normal percussion Gastrointestinal: soft, non-tender, non-distended, normal bowel sounds, no palpable masses, no hepatomegaly, no splenomegaly, no bruit Extremities: no cyanosis, no clubbing, no edema Skin: normal turgor Musculoskeletal: normal tone Psychiatric: normal affect, normal behavior Hosp A/P (1) Hx of bladder cancer Code(s): Z85.51 - PERSONAL HISTORY OF MALIGNANT NEOPLASM OF BLADDER Status: Acute (2) Hx of cancer of lung Code(s): Z85.118 - PERSONAL HISTORY OF MALIGNANT NEOPLASM OF BRONCHUS AND LUNG Status: Acute (3) Lung mass Code(s): R91.8 - OTHER NONSPECIFIC ABNORMAL FINDING OF LUNG FIELD Status: Acute (4) Metastasis to adrenal gland Code(s): C79.70 - SECONDARY MALIGNANT NEOPLASM OF UNSPECIFIED ADRENAL GLAND Status: Acute (5) Urinary retention Code(s): R33.9 - RETENTION OF URINE, UNSPECIFIED Status: Acute - Plan Recommended with just keep the Arevlao in place for now. He does not seem to have the capacity to self-cath now. He is amenable. Long discussion with the patient's and son. Initial biopsy was non-diagnostic. Choice now is biopsy v. palliative approach. We talked through both options with pros and cons. Ultimately, the would like to talk with hospice this afternoon. He has made it clear to the family that he did not want chemotherapy treatment when he experienced cancer previously. If they chose to move forward with biopsy, will see if Dr. Brown can do that here. Otherwise, he can be discharged.
[2019-06-26] MEDS: Amlodipine 5 MG TAB PO SCH (08:42)
[2019-06-26] MEDS: Multivitamin W/ Minerals 1 TAB PO SCH (08:43)
[2019-06-26] MEDS: Megestrol Acetate 40 MG TAB PO SCH (08:43)
[2019-06-26] MEDS: Famotidine 20 MG TAB PO SCH (08:43)
[2019-06-26] MEDS: lamoTRIgine 100 MG TAB PO SCH (08:43)
[2019-06-26 12:11] VITALS: BP 107/62; TEMP 98.5
== END 2019-06-26 13:16 | disposition hospice, home (50) ==
LOC: ERS 09:29 → 2SW 12:44
PROVIDERS: ADMIT Family Medicine; ATTEND Family Medicine
DX: N13.39 Other hydronephrosis (principal); N32.0 Bladder-neck obstruction; I12.9 Hypertensive chronic kidney disease with stage 1 through stage 4 chronic kidney disease, or unspecified chronic kidney disease; N18.3 Chronic kidney disease, stage 3 (moderate); N17.9 Acute kidney failure, unspecified; K80.20 Calculus of gallbladder without cholecystitis without obstruction; C79.72 Secondary malignant neoplasm of left adrenal gland; C79.71 Secondary malignant neoplasm of right adrenal gland; C79.51 Secondary malignant neoplasm of bone; R91.8 Other nonspecific abnormal finding of lung field; R63.4 Abnormal weight loss; Z68.1 Body mass index [BMI] 19.9 or less, adult; Z85.118 Personal history of other malignant neoplasm of bronchus and lung; Z85.51 Personal history of malignant neoplasm of bladder; Z87.891 Personal history of nicotine dependence; Z79.899 Other long term (current) drug therapy; Z88.8 Allergy status to other drugs, medicaments and biological substances
CPT/HCPCS: 74177; 80048; 80053; 85007; 85025; 85027; 94760; 96361 ×2; 96374; 97116; 97139 ×2; 99285; G0378 ×4; 36415; J2405; S0179